=== PATIENT | female | born 1965 | race Caucasian/White ===

== ENCOUNTER 2024-08-10 15:34 | Emergency (ER) | payer BC, SELFPAY ==
--- NOTE | ~2024-08-10 | XR_ITS ---
EXAMINATION: XR CHEST 2 VIEWS HISTORY: cp COMPARISON: There are no prior studies for comparison. FINDINGS: PA and lateral views of the chest are submitted. A small patchy opacity is seen in the lingula suggestive of early pneumonia. The right lung is clear. There is no pleural effusion, pneumothorax, or pulmonary vascular congestion. The heart is normal in size. The bones are intact. XR/XR chest 2V IMPRESSION: Findings suggestive of early lingular pneumonia. Follow-up is recommended to document resolution. Electronically signed by: Shemar Boogie MD 08/10/2024 03:59 PM EDT
--- NOTE | ~2024-08-10 | CT_ITS ---
CLINICAL HISTORY: pleuritic pain, dimer elev CT angiography chest with contrast. 3D Postprocessing. Comparison: None Findings: Mild cardiomegaly. The thoracic aorta is normal caliber. No pulmonary artery filling defects. The visualized thyroid and mediastinum are unremarkable. Lungs are clear. No significant pleural effusion or pneumothorax. The upper abdomen is unremarkable. Osteopenia. IMPRESSION: No evidence of PE. This document has been electronically signed by: Sharif Jorge MD on 08/10/2024 19:53:05
--- NOTE | 2024-08-10 15:38 | ECG_ITS ---
Test Reason : CHEST PAIN Blood Pressure : */* mmHG Vent. Rate : 72 BPM Atrial Rate : 72 BPM P-R Int : 136 ms QRS Dur : 82 ms QT Int : 360 ms P-R-T Axes : 65 40 30 degrees QTcB Int : 394 ms Normal sinus rhythm Normal ECG No previous ECGs available Referred By: Lizbeth Ricks Electronically Signed By: MAGDY RAMIREZ
--- NOTE | 2024-08-10 15:43 | ED.CHESTPAIN ---
HPI - Chest Pain General Chief Complaint: Chest Pain Stated Complaint: Chest pain, sent from urgent care Time Seen by Provider: 08/10/24 17:45 History of Present Illness ED Provider: Enrique Campbell MD HPI narrative: 58-year-old female who reports pleuritic type pain in the right posterior mid scapular region about ribs 9-10. There is no bruising to this area no rash. She denies any injury she denies cough fever or URI/infectious symptoms. No fall or injury. No history DVT PE coronary disease or any cardiopulmonary disorder. Recent trip to [place] subjectively feels slight increasing girth of the right upper extremity and right lower extremity no skin changes Related Data Home Medications ?Medication ?Instructions ?Recorded ?Confirmed ivermectin 1 % topical cream 1 appl topical DAILY 09/09/21 (Soolantra) Previous Rx's ?Medication ?Instructions ?Recorded erythromycin 5 mg/gram (0.5 %) eye 0.5 inch ophthalmic (eye) TID 7 09/09/21 ointment days #3.5 grams Allergies Allergy/AdvReac Type Severity Reaction Status Date / Time Penicillins Allergy Intermediate throat Verified 08/10/24 15:47 closing [facility] Social History Social History Smoked in Last 30 Days: No Use of substances other than those prescribed or required for medical reasons: No Advance Directives: No Advance Directives Information Provided: Yes Physical Exam Vital Signs: Vital Signs: Last Vital Signs Temp 98.6 F 08/10/24 21:34 Pulse 68 08/10/24 21:34 Resp 18 08/10/24 21:34 BP 130/78 08/10/24 21:34 Pulse Ox 99 08/10/24 21:34 O2 Del Method Room Air 08/10/24 21:34 BMI result Body Mass Index 23.8 Const: Other: EXAM: Gen: Alert, awake, well appearing, well hydrated. Head: Atraumatic Eyes: Anicteric, Normal conjunctiva. ENT: Moist mucosa, no pallor. Neck: Supple. Respiratory: Breathing comfortably, No distress.Clear to auscultation bilaterally, symmetric chest expansion, No wheeze, rales, ronchi. occasional splinting on deep inspiration noted mildly tender in the right posterior chest wall no bruising there Cardiovascular: Regular rate and rhythm. No murmurs or rub. Well perfused periphery, warm extremities. No edema. Abdominal: Soft, no objective distension. No palpable masses or obvious organomegaly. No focal tenderness, no guarding, no rebound tenderness or other peritoneal findings. : No flank tenderness. Neuro: Alert. Gross movement of all extremities intact. Vital signs: See flowsheet Course Course Course Narrative: This is a Rapid Medical Exam performed in triage by Lizbeth Ricks PA-C. Full HPI, ROS and PE to be performed by primary ED provider. 58 yo F presenting to the ED c/o chest/upper back pain x 2 days, worse w/deep breathing described as spasm in lung. Admits recently traveled to [place] 2 wks ago. Also reports RLE swelling a few weeks ago which is now resolved. denies hx blood clots, smoking. PE: talking in complete sentences, no resp distress. Plan: EKG, labs - including dimer, CXR, SARs Medications Administered Discontinued Medications Generic Name Dose Route Start Last Admin Trade Name Freq PRN Reason Stop Dose Admin Iohexol 100 ml 08/10/24 19:04 08/10/24 19:04 Iohexol 350 Mg/Ml 100 Ml Infus..Btl IV 08/10/24 19:05 65 ml ONCE ONE Administration Ketorolac Tromethamine 15 mg 08/10/24 18:17 08/10/24 18:30 Ketorolac Tromethamine 15 Mg/Ml Vial IVPUSH 08/10/24 18:18 15 mg ONCE ONE Administration Levofloxacin 750 mg 08/10/24 17:50 08/10/24 21:13 Levofloxacin 750 Mg Tablet PO 08/10/24 17:51 Not Given ONCE ONE Procedures Procedure Narrative Procedure Narrative: EMERGENCY ULTRASOUND INTERPRETATION-Limited Echocardiography [This study was ordered, performed, and interpreted by myself. The study reveals: Impression: NORMAL LV FUNCTION, NO RV DYSFUNCTION, NO PERICARDIAL EFFUSION] [Emergent Cardiac for Indication: Views Used: PLAX, PSSA, A4, SX, IVC Pericardial Effusion/Tamponade Findings: NONE RV Dilation (> LV diam in 4ch apical): NONE Global LV Fxn: NORMAL thoracic: Right side inferior mid scapular line subpleural collection possibly infiltrate Performed by: MD Shannan Images were stored on EMR through [employer] image archive software. CPT:52497] _ EMERGENCY ULTRASOUND INTERPRETATION-Limited Point of Care Venous (DVT) [This study was ordered, performed, and interpreted by myself. The study reveals: Impression: NO EVIDENCE OF DVT. I RECOMMENDED TO THE PATIENT REPEAT ULTRASOUND IN ONE WEEK IF SYMPTOMS PERSIST.] [Indication: Laterality: RIGHT Common Femoral: -Full Compressibility: YES -Clot Seen: NO Superficial Femoral: -Full Compressibility: YES -Clot Seen: NO Popliteal: -Full Compressibility: YES -Clot Seen: NO Other: Performed by: Enrique Campbell MD Images were stored on EMR through [employer] image archive software. CPT: 01062] Medical Decision Making Medical Decision Making [facility] Narrative: 58-year-old female with no significant past medical history with pleuritic right back pain. No cough or infectious symptoms. Recent travel to [place]. No injury of the chest wall. Chest x-ray read with lingular infiltrate however this does not match either the laterality of her symptoms nor her clinical appearance and exam. D-dimer elevated we will get PE study. Plan for bedside DVT ultrasound and echo and lung ultrasound. __ CT excludes PE there was no infiltrative process including no lingular infiltrate seen on x-ray. I discussed the patient's symptomatology radiology lab findings with her. Probably false elevated dimer. There is no right lower extremity DVT as she had subjective swelling of the right lower leg. Unclear etiology of her pain although we discussed that this could be a musculoskeletal or possibly intercostal strain versus mild focal pleuritis of unclear etiology. She looks well has normal oxygen respiratory rate she is not distressed she is splinting slightly I have asked her to put a heating pad take ibuprofen over the next few days and be sure to have deep inspirations to avoid atelectasis or pneumonia. Lab Data [facility] Lab Attestation statement: I reviewed the patient's lab results. 08/10/24 15:59 08/10/24 15:59 Labs: Lab Results 08/10/24 Range/Units 15:59 WBC 14.0 H (4.8-10.8) X10*3/uL RBC 4.80 (4.20-5.50) X10*6/uL Hgb 14.4 (12.0-16.0) g/dl Hct 42.0 (37.0-47.0) % MCV 87.5 (80.0-98.0) fL MCH 30.0 (27.0-33.0) pg MCHC 34.3 (31.0-35.0) g/dl RDW 13.3 (11.0-16.0) % Plt Count 283 (160-400) X10*3/uL MPV 9.5 (9.4-12.3) fL Immature Gran % (Auto) 0.4 (0.0-0.4) % Neut % (Auto) 73.9 H (45-73) % Lymph % (Auto) 17.6 L (20-40) % Grundy % (Auto) 5.5 (2-11) % Eos % (Auto) 1.8 (0-4) % Baso % (Auto) 0.8 (0-2) % Lymph # (Auto) 2.5 (1.2-4.9) X10*3/uL Grundy # (Auto) 0.8 (0.1-1.2) X10*3/uL Eos # (Auto) 0.3 (0.0-0.4) X10*3/uL Baso # (Auto) 0.1 (0.0-0.2) X10*3/uL Abs Immat Gran (auto) 0.06 H (0.00-0.03) X10*3/uL Absolute Neuts (auto) 10.4 H (2.0-8.3) x10*3/uL Absolute Nucleated RBC 0.000 (0.0-0.012) X10*3/uL Nucleated RBC % (auto) 0.0 (0.0-0.2) /100WBC D-Dimer High Sensitivty 331 NG/ML Sodium 143 (135-145) mmol/L Potassium 3.8 (3.3-5.1) mmol/L Chloride 106 (96-108) mmol/L Carbon Dioxide 26 (22-29) mmol/L Anion Gap 15 (12-20) BUN 14 (9-16) mg/dL Creatinine 0.77 (0.5-1.4) mg/dL Estim Creat Clear Calc 73.6 Estimated GFR > 60 Random Glucose 113 (60-115) mg/dL Calcium 10.0 (8.4-10.2) mg/dL Magnesium 2.1 (1.6-2.6) mg/dL Total Bilirubin 0.7 (0.0-1.0) mg/dL Direct Bilirubin 0.2 (0.0-0.5) mg/dL AST 24 (5-31) U/L ALT 25 (0-31) U/L Alkaline Phosphatase 70 (39-117) U/L Troponin I High Sens < 2.7 (<3.5-17.0) ng/L B-Natriuretic Peptide 22 (<100) pg/mL Total Protein 7.8 (6.5-8.0) g/dL Albumin 4.6 (3.5-5.0) g/dL Influenza Type A (PCR) NEGATIVE (Negative) Influenza Type B (PCR) NEGATIVE (Negative) RSV RNA Qual (PCR) NEGATIVE (Negative) SARS-CoV-2 RNA (RT-PCR) NEGATIVE (Negative) Independent Interpretation I performed an independent interpretation of an: EKG (Sinus rhythm rate 70s, no acute ischemic changes. No RV strain) Discharge Plan Discharge Clinical Impression: Chest pain Patient Disposition: Home, Self-Care Instructions: Chest Wall Pain (ED) Additional Instructions: DISCHARGE DIAGNOSES: Chest pain possibly musculoskeletal strain of the right back possibly pleuritis or inflammation of the lung or lining of the lung which is benign Pneumonia and pulmonary embolism or blood clot in the lung have been excluded by CT scan no clot seen in the right leg as well HISTORY OF PRESENTATION: chest discomfort EMERGENCY DEPARTMENT COURSE,TESTS, TREATMENTS: While in the ED today you had a CT scan of the chest that ruled out blood clot pneumonia or other serious complications. We did an echocardiogram of your heart at the bedside and a ultrasound your right leg no clot was seen there no abnormalities of your heart were seen. Your lab work was reassuring. The blood clot test that was positive was very slightly positive and likely falsely so. DISCHARGE MEDICATIONS: [We have made no changes to your regular medication regimen] FOLLOW-UP: Call your primary or general physician soon as possible to discuss your symptoms, your ED visit and to discuss follow up plans Take ibuprofen 600 mg every 6 hours for the next 2-3 days per warming pad of the right chest. If the pain is improving this is likely musculoskeletal or inflammatory in nature INSTRUCTIONS & RETURN PRECAUTIONS: If any symptoms change first call your primary physician, if it is after-hours your primary doctors office should have a provider regional extension service specialist you can speak with. If the symptoms are severe or very concerning to you then call 911 or return to the ED. if you develop severe worsening symptoms difficulty breathing coughing up blood swelling in her leg severe chest pain return back to the emergency department Enrique Campbell MD Emergency Physician [facility] Prescriptions: No Action ivermectin [Soolantra] 1 % cream 1 appl topical DAILY erythromycin 5 mg/gram (0.5 %) ointment 0.5 inch ophthalmic (eye) TID 7 Days Qty: 3.5 0RF Interventions: ED Discharge Assessment Last Done: 08/10/24 21:34 Discharge Date/Time: 08/10/24 21:35 Print Language: Czech
[2024-08-10 15:44] VITALS: BP 160/60; PULSE 75; RESP 18; TEMP 36.9; O2SAT 100; BMI 23.8
[2024-08-10 16:00] VITALS: BP 160/60; PULSE 75; RESP 18; TEMP 36.9; O2SAT 100
[2024-08-10 16:05] LABS: Basophils Absolute Auto 0.1 X10*3/uL (0.0-0.2); Basophils Percent Auto 0.8 % (0-2); Eosinophils Absolute Auto 0.3 X10*3/uL (0.0-0.4); Eosinophils Percent Auto 1.8 % (0-4); Hemoglobin 14.4 g/dl (12.0-16.0); Imm Gran Abs Auto 0.06 X10*3/uL (0.00-0.03); Imm Gran Pct Auto 0.4 % (0.0-0.4); Lymphocytes Absolute Auto 2.5 X10*3/uL (1.2-4.9); Lymphocytes Percent Auto 17.6 % (20-40); MANUAL DIFF FLAG NO; Mean Corpuscular HGB Conc 34.3 g/dl (31.0-35.0); Mean Corpuscular Volume 87.5 fL (80.0-98.0); Mean Platelet Volume 9.5 fL (9.4-12.3); Monocytes Absolute Auto 0.8 X10*3/uL (0.1-1.2); Monocytes Percent Auto 5.5 % (2-11); Neutrophils Absolute Auto 10.4 x10*3/uL (2.0-8.3); Neutrophils Percent Auto 73.9 % (45-73); Platelet Count 283 X10*3/uL (160-400); Red Cell Distribution Width 13.3 % (11.0-16.0)
[2024-08-10 16:14] LABS: D Dimer High Sensitivity 331 NG/ML
[2024-08-10 16:28] LABS: Alanine Aminotransferase 25 U/L (0-31); Albumin Level 4.6 g/dL (3.5-5.0); Anion Gap 15 (12-20); Aspartate Amino Transferase 24 U/L (5-31); B Type Natriuretic Peptide 22 pg/mL (<100); Bilirubin Direct 0.2 mg/dL (0.0-0.5); Bilirubin Total 0.7 mg/dL (0.0-1.0); Blood Urea Nitrogen 14 mg/dL (9-16); Carbon Dioxide 26 mmol/L (22-29); Chloride 106 mmol/L (96-108); Creatinine Clr Calc Pharmacy 73.6; Estimated Glomerular Filt Rate > 60; Glucose Random 113 mg/dL (60-115); Magnesium 2.1 mg/dL (1.6-2.6); Potassium 3.8 mmol/L (3.3-5.1); Sodium 143 mmol/L (135-145); Total Protein 7.8 g/dL (6.5-8.0)
[2024-08-10 16:30] LABS: Troponin-I High Sensitivity < 2.7 ng/L (<3.5-17.0)
[2024-08-10 16:37] LABS: Alkaline Phosphatase 70 U/L (39-117)
[2024-08-10 16:45] LABS: Influenza A PCR NEGATIVE (Negative); Influenza B PCR NEGATIVE (Negative); Resp Syncy Virus RNA Qual PCR NEGATIVE (Negative); SARS COV2 PCR INHOUSE NEGATIVE (Negative)
[2024-08-10] MEDS: Ketorolac Tromethamine 15 MG/ML VIAL IVPUSH (18:30)
[2024-08-10] MEDS: iohexoL 350 MG/ML 100 ML INFUS..BTL IV (19:04)
--- NOTE | 2024-08-10 19:13 | PC.NURSE ---
this rn assumed care of pt, per provider, hold off on medication until ct scan results.
[2024-08-10 20:03] VITALS: BP 127/62; PULSE 75; RESP 16; TEMP 36.9; O2SAT 98
[2024-08-10 21:34] VITALS: BP 130/78; PULSE 68; RESP 18; TEMP 37; O2SAT 99
== END 2024-08-10 21:35 | disposition home or self-care (01) ==
PROVIDERS: Physician Assistant; Emergency Provider Emergency Medicine; PCP Family Medicine
DX: R07.89 Other chest pain (principal); R60.0 Localized edema; M54.6 Pain in thoracic spine; R07.1 Chest pain on breathing; R06.02 Shortness of breath; Z79.899 Other long term (current) drug therapy; Z03.818 Encounter for observation for suspected exposure to other biological agents ruled out
CPT/HCPCS: 0241U; 36415; 71046; 71275; 80048; 80076; 83735; 83880; 84484; 85025; 85379; 93005; 96374; 99284; 99285; J1885; Q9967

== ENCOUNTER → 2024-08-10 15:38 | Outpatient (BNV) | payer BC, SELFPAY | PROVIDERS: Emergency Provider Emergency Medicine; PCP Family Medicine; Visit Provider Internal Medicine | DX: R07.9 Chest pain, unspecified (principal) | CPT/HCPCS: 93010 ==

== ENCOUNTER → 2024-08-10 15:45 | Outpatient (BNV) | payer OTHER, SELFPAY | PROVIDERS: PCP Family Medicine; Visit Provider Radiology Diagnostic Radiology | DX: R07.81 Pleurodynia (principal) | CPT/HCPCS: 71046; 71275 ==